=== PATIENT | female | born 1960 | race Caucasian/White ===

== ENCOUNTER 2017-10-02 15:21 | Outpatient (CLI) | payer BC ==
--- NOTE | 2017-10-09 13:22 | MMO ---
BILATERAL MAMMOGRAMS: HISTORY: Screening mammography. COMPARISON: 11/10/14. FINDINGS: Heterogeneously dense fibroglandular densities and benign-appearing calcifications are again demonstr ated. Subtle partially obscured oval and lobular isodense nodules of varying size within each breast are stable. No new dominant mass or suspicious calcifications. The study was evaluated with the as sistance of computer-aided detection. IMPRESSION: BI-RADS category 2. Benign findings. Suggest routine followup. BIRADS 2: Benign Finding(s) Routine annual screening mammography (for women over age 40) POS: LES
== END 2017-10-02 15:22 | disposition home or self-care (01) ==
LOC: SCSMAMMO 15:21
PROVIDERS: ATTEND Family Medicine
DX: Z12.31 Encounter for screening mammogram for malignant neoplasm of breast (principal)
CPT/HCPCS: 77067